=== PATIENT | female | born 1975 | race Caucasian/White ===

== ENCOUNTER 2017-10-05 11:49 | Day surgery (SDC) | payer BC ==
--- NOTE | 2017-10-05 07:42 | History and Physical Report ---
DATE: 10/04/2017. CHIEF COMPLAINT AND HISTORY OF CHIEF COMPLAINT: This is a patient with a history of postlumbar laminectomy radiculopathy. She presents today for an implanted spinal catheter infusion trial with hydromorphone to determine if the implantation of a permanent system can be of any value in pain control. PAST MEDICAL HISTORY: Hypertension, cardiac arrhythmia. SOCIAL HISTORY: Social alcohol, caffeine. FAMILY HISTORY: Cardiac disease. PAST SURGICAL HISTORY: Lumbar spinal surgery, knee surgery, spinal cord stimulator implant. 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 MEDICATIONS ON ADMISSION: To be provided. ALLERGIES: Antibiotics, erythromycin, morphine, opioid. REVIEW OF SYSTEMS: The patient seems appropriate and in no acute distress. The remainder of the systems review shows glasses, headaches, blood pressure problems, degenerative arthritis, depression. PHYSICAL EXAMINATION: General: Height and weight are unknown. Vital Signs: Not available. HEENT: Within normal limits. Lungs: Clear. Heart: Regular rate and rhythm. Abdomen: Nontender. Musculoskeletal: Examination of the musculoskeletal system shows diffuse tenderness throughout the lumbar spine with an adjacent laminectomy scar. Range of motion does produce pain throughout the low back and extending into both legs, somewhat more left than right. Motor and sensory field function shows no significant sensory or motor deficits. Ambulation: No assistive device utilized. Neurologic: Cranial nerves are intact. IMPRESSION: 1. 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 2. LUMBAR RADICULOPATHY, ICD-10 CODE M54.16 AND M54.17. 3. IMPLANTED SPINAL CATHETER INFUSION TRIAL WITH HYDROMORPHONE. PLAN: The patient is here for an implanted spinal catheter infusion trial for evaluation to determine if the implantation of a permanent system will be of any value in pain control. The patient understands the procedure will involve implanting the spinal catheter and the inherent risks of placing a spinal catheter. These include spinal cord injury, paralysis, nerve root injury, and spinal headache. The implanted catheter will be externalized and interfaced to an external pump for the infusion. An epidural blood patch will be performed as a secondary measure to help prevent a spinal headache. The potential risks, side effects, and complications have all been carefully reviewed and discussed. We will evaluate this patient for an overnight stay and will discharge her in the morning. The patient has met with and discussed the risks, side effects, and complications with a [employer] student services representative. Information was provided by way of CD Rom which was given to the patient to evaluate the risks, side effects , and complications. All of her questions have been answered, and everything has been reviewed. JOB NUMBER: [id number] cc: Lauri Trevizo D.O. MTDD
[~2017-10-05 11:49] MED LIST: ACETAMINOPHEN 1,000 MG/100 ML BTL IV ONE; CEFAZOLIN 2 Gram 2 GM/50 ML BAG IVPB ONE; FAMOTIDINE 20MG TABLET PO ONE; HYDROMORPHONE PF 2MG/ML AMP 0.008 MG in 0.9 % SODIUM CHLORIDE 10ML VIA 0.996 ML IV ONE; HYDROMORPHONE PF 2MG/ML AMP 4 MG in 0.9 % SODIUM CHLORIDE 500ML 498 ML IV ONE; MECLIZINE 25 MG TABLET PO ONE; METOCLOPRAMIDE 10 MG TABLET PO ONE
[2017-10-05] MEDS ORDERED: HYDROMORPHONE HCL 2 MG/ML VIAL IV ONE (11:50)
[2017-10-05] MEDS ORDERED: CEFAZOLIN 1G VIAL IM ONE (11:50)
[2017-10-05] MEDS ORDERED: ONDANSETRON HCL IV 4 MG/2 ML VIAL IVP ONE (11:50)
[2017-10-05] MEDS ORDERED: LIDOCAINE 2% MDV (20MG/ML) 20ML VIAL IV ONE (11:50)
[2017-10-05] MEDS ORDERED: PROPOFOL 10 MG/ML VIAL IV ONE (11:50)
[2017-10-05] MEDS ORDERED: LIDOCAINE 1% W/EPI 1:200,000 MPF 30ML SQ ONE (11:50)
[2017-10-05] MEDS ORDERED: BUPIVACAINE 0.5% W/EPI MPF 30 ML VIAL IVP ONE (11:50)
[2017-10-05] MEDS ORDERED: FENTANYL PF 100MCG/2ML VIAL IV ONE (11:50)
[2017-10-05] MEDS ORDERED: *PACU ONLY* KETAMINE HCL 10 MG/ML (20ML) VIAL IV ONE (11:50)
[2017-10-05] MEDS ORDERED: MIDAZOLAM HCL 2MG/2ML VIAL IV ONE (11:50)
[2017-10-05] MEDS ORDERED: RELPAX 40 MG PO PRN (15:52)
[2017-10-05] MEDS ORDERED: PATIENT OWN MED: OMEPRAZOLE 20 MG PO PRN (15:52)
[2017-10-05] MEDS ORDERED: ACETAMINOPHEN 325 MG TAB PO PRN ×2 (15:55)
[2017-10-05] MEDS ORDERED: METOCLOPRAMIDE 10 MG TABLET PO PRN (15:55)
[2017-10-05] MEDS ORDERED: DIPHENHYDRAMINE HCL 25 MG CAPSULE PO PRN (15:55)
[2017-10-05] MEDS ORDERED: AL HYDROX/MAG HYDROX 30ML UD PO PRN (15:55)
[2017-10-05] MEDS ORDERED: HYDROCODONE/APAP 7.5/325MG TABLET PO PRN ×2 (15:55)
[2017-10-05] MEDS ORDERED: SENNOSIDES/DOCUSATE SODIUM UD CAPSULE PO PRN ×2 (15:55)
[2017-10-05] MEDS ORDERED: TEMAZEPAM 15 MG CAPSULE PO PRN ×2 (15:55)
[2017-10-05] MEDS ORDERED: METOCLOPRAMIDE HCL 10 MG/2 ML VIAL IVP PRN (15:55)
[2017-10-05] MEDS ORDERED: OXYCODONE/APAP 10MG-325MG TABLET PO PRN (15:55)
[2017-10-05] MEDS ORDERED: HYDROMORPHONE HCL 2 MG/ML VIAL IM PRN ×2 (15:55)
[2017-10-05] MEDS ORDERED: NALOXONE 0.4 MG/1 ML VIAL IVP PRN (15:55)
[2017-10-05] MEDS ORDERED: DIPHENHYDRAMINE HCL IV 50 MG/ML VIAL IVP PRN ×2 (15:55)
[2017-10-05] MEDS: DIPHENHYDRAMINE HCL 25 MG CAPSULE PO PRN (18:24)
[2017-10-05] MEDS: OXYCODONE/APAP 10MG-325MG TABLET PO PRN ×2 (18:24→22:20)
[2017-10-05] MEDS: RINGERS SOLUTION,LACTATED 1,000 ML IV SCH (18:25)
--- NOTE | 2017-10-05 19:17 | Operative Note - Ferro ---
DATE OF SURGERY: 10/05/17 PREOPERATIVE DIAGNOSIS: 1. POST LUMBAR LAMINECTOMY SYNDROME, ICD-10 CODE = M96.1. 2. LUMBAR RADICULOPATHY, ICD-10 CODE = M54.16 AND M54.17. SURGERY: 1. FLUOROSCOPIC-GUIDED ACCESS SPINAL SPACE AT L3-4. PLACEMENT OF THIN-WALLED SPINAL CATHETER T11-12. 2. DIAGNOSTIC MYELOGRAPHY WITH RADIOLOGIC SUPERVISION AND INTERPRETATION. 3. SPINAL OPIOID BOLUS HYDROMORPHONE 0.002 MG SPINAL SPACE. 4. INCISION, SUBCUTANEOUS DISSECTION, AND ANCHORING OF SPINAL CATHETER TO SUPRASPINOUS FASCIA USING ANCHORING DEVICE AND NONABSORBABLE SUTURE. 5. INCISION, SUBCUTANEOUS DISSECTION, AND CREATION OF SUBCUTANEOUS POUCH AT RIGHT POSTERIOR GLUTEAL MARGIN, A SITE PICKED BY PATIENT FOR EVENTUAL PUMP. 6. TUNNELING OF SPINAL CATHETER INTO POSTERIOR GLUTEAL POUCH, INTERFACE SPINAL CATHETER WITH SECOND CATHETER COMPONENT TUNNELED 6 CM SUPERIOR EXITING THE SKIN. INTERFACE EXTERNAL CATHETER WITH EXTERNAL INFUSION DEVICE SET TO DELIVER HYDROMORPHONE AT 0.08 MG A DAY. 7. CLOSURE OF MIDLINE INCISION WITH VICRYL FOR FASCIAL AND RUNNING SUBCUTICULAR VICRYL FOR SKIN, CLOSURE OF GLUTEAL POUCH WITH RUNNING NYLON, PLACEMENT OF DERMABOND AT MIDLINE SPINAL CATHETER INCISION. DRESSINGS PLACED SECURING CATHETER AND ALL CONNECTIONS UNDER STERILE DRESSING. 8. EPIDURAL BLOOD PATCH AT L4-5, 20 ML AUTOLOGOUS BLOOD DRAWN, STERILE TECHNIQUE, LEFT ANTECUBITAL. SURGEON: TIM BREWSTER D.O. ANESTHESIA: LOCAL SEDATION. ANESTHESIA PROVIDER: JIMMY FRANCOIS CRNA INDICATIONS: This patient presents with a history of intractable post lumbar radiculopathy. Due to the failure of therapy, she was referred to this facility for a spinal opioid infusion pump. She is here for an implanted catheter infusion trial with Hydromorphone to determine if the implantation of a permanent system can be of any value in pain control. SURGERY: Intravenous line, vital sign monitoring, IV sedation, prepped and draped in sterile technique, patient positioned prone. Sterile prep, sterile technique and imaging for guidance, local for infiltration. The spinal interspace at 3-4 marked, infiltrated, then a #20 gauge spinal needle paramedian approach beveled with the long axis inserted into the spinal space using AP and lateral images, advancing into the spinal space on lateral image with CSF flow. A thin-walled spinal catheter was advanced, positioned interspace T11-12. The catheter was clamped to stop CSF leak. The skin above and below the needle infiltrated, incision made, and subcutaneous dissection was conducted to the supraspinous fascia. The needle was removed and the catheter anchored to the supraspinous fascia with anchoring and nonabsorbable suture. There was still CSF from the catheter noted. Diagnostic myelography was then performed through the catheter with the resultant contrast flow characteristics were smoothly in the space. Appropriate flow characteristics noted, no obstructions or kinks. With appropriate flow and identification of the catheter, a bolus of Hydromorphone 0.002 mg given through the catheter into the spinal space. The catheter was then clamped to stop CSF leak. At the right posterior gluteal margin, a site ultimately for the pump picked by the patient, skin infiltrated, incision made, and subcutaneous dissection was used to form a subcutaneous pouch of suitable size and depth. A tunneling tool was then used to carry the spinal catheter into the posterior pouch. The spinal catheter was interfaced with a second catheter component by way of a connector. This second catheter component was tunneled 6 cm above this pouch and exited the skin. The external catheter was then interfaced with an external pump, which was set to deliver Hydromorphone at 0.08 mg a day. The midline incision was closed with Vicryl for fascia and a running subcuticular Vicryl for skin. The posterior pouch was closed with a running nylon. At L4-5, which was one level over the dural puncture, skin infiltrated, an #18 gauge Tuohy needle with loss-of- resistance into the epidural space. 20 mL of autologous blood drawn sterile technique left antecubital and an epidural blood patch was performed at this level with this blood. Needle removed. Dressing was placed securing the incisions and catheter as well as all components under the sterile dressing. With the infusion device running, she was turned onto a transport bed, flat, pillow under head and knees, and transported to the Recovery Room stable. There were no side-effects from the procedure or the sedation. She had full functionality of upper and lower extremities. She had no significant or appreciable pain complaints. She appeared to be doing well. She did have a migraine headache before the procedure. She was advised and cautioned as to the occurrence of the spinal headache exacerbation of her migraine. She will be kept overnight for observation and discharged in the morning. DISCHARGE INSTRUCTIONS IN THE MORNIN. The sites to remain clean and dry. No showering or bathing in any way that would disrupt dressings. 2. Standard medications resumed, including the antibiotic Levaquin 500 mg once a day for 14 days. 3. Spinal opioid side-effects of respiratory depression, nausea, vomiting, constipation, urinary retention, lightheadedness or rash have all been discussed and reviewed. The patient will be seen in the office within the next two days to evaluate the dressings to ensure integrity and do the first of three possible increases, if necessary. A total of three increases will be scheduled. As explained to the patient, it would be more than likely not until the second increase that significant or appreciable pain control will be achieved. Potential risks and side-effects and complications have been reviewed and discussed. She will be monitored and discharged in the morning. cc: Dr. Roderick Barrera JOB NUMBER: [id number] MTDD
[2017-10-05] MEDS: CEFAZOLIN 2 Gram 2 GM/50 ML BAG IVPB SCH (21:33)
[2017-10-05] MEDS ORDERED: PATIENT OWN MED: CYCLOBENZAPRINE 10 MG PO SCH (22:00)
[2017-10-05] MEDS ORDERED: MELATONIN 5 MG TABLET PO SCH (22:00)
[2017-10-05] MEDS ORDERED: PATIENT OWN MED: DULOXETINE 60 MG PO SCH (22:00)
[2017-10-06] MEDS: RINGERS SOLUTION,LACTATED 1,000 ML IV SCH (01:36)
[2017-10-06] MEDS: OXYCODONE/APAP 10MG-325MG TABLET PO PRN ×2 (04:28→10:50)
[2017-10-06] MEDS: DIPHENHYDRAMINE HCL 25 MG CAPSULE PO PRN ×2 (04:28→10:49)
[2017-10-06] MEDS: CEFAZOLIN 2 Gram 2 GM/50 ML BAG IVPB SCH (04:47)
[2017-10-06] MEDS ORDERED: PREGABALIN 75 MG PO SCH (10:00)
[2017-10-06] MEDS ORDERED: POLYETHYLENE GLY 17 GM PACKET PO SCH (10:00)
[2017-10-06] MEDS ORDERED: LISINOPRIL 2.5 MG PO SCH (10:00)
--- NOTE | 2017-10-06 16:37 | RADIOLOGY REPORT ---
EXAM: SPINE, 1 VIEW HISTORY: POST PAIN PUMP TRIAL. TECHNIQUE: Single AP portable view of the abdomen. COMPARISON: None. FINDINGS: Patient is probably postop laminectomy at L5. Battery pack overlying the left side of the pelvis with the associated catheter extending over the spine and extending up above the superior aspect of the image, which ends at the T8 level. There may be some faint contrast in the inferior aspect of the thecal sac overlying the upper sacrum. A few metallic densities just to the left of this are of uncertain significance and correlation with the procedure itself suggested. There is also a linear wire or needle-like density about 21 mm in length overlying the right iliac wing. This could be external to the patient or even an artifact but is nonspecific and clinical correlation suggested. IMPRESSION: 1. POSTOP CHANGES AT L5. 2. SOME METALLIC DENSITIES OVERLYING THE UPPER SACRUM ON THE LEFT OF UNCERTAIN SIGNIFICANCE DESCRIBED ABOVE. 3. BATTERY PACK OVERLYING THE LEFT SIDE OF THE PELVIS WITH ASSOCIATED CATHETER/ WIRES EXTENDING UP TO OVERLIE THE LOWER THORACIC SPINE EXTENDING UP ABOVE THE UPPER EXTENT OF THE FILM. 4. LINEAR NEEDLE-LIKE DENSITY OVERLYING THE RIGHT ILIAC WING OF UNCERTAIN SIGNIFICANCE DESCRIBED ABOVE. JOB NUMBER: [id number] [facility]
== END 2017-10-06 11:00 | disposition home or self-care (01) ==
LOC: SUR 11:49 → MEDSURG 16:03 → SUR 10-06 11:00
PROVIDERS: ATTEND Pain Medicine Interventional Pain Medicine
DX: M96.1 Postlaminectomy syndrome, not elsewhere classified (principal); M54.16 Radiculopathy, lumbar region; M54.17 Radiculopathy, lumbosacral region; I10 Essential (primary) hypertension; K21.9 Gastro-esophageal reflux disease without esophagitis; G89.29 Other chronic pain
CPT/HCPCS: 62350; 01936; 85002; 72020; Q9967; J2405; J3010; J1170 ×2; J0690 ×2; J3490; J1200; J7040; J7120

== ENCOUNTER 2017-10-19 13:14 | Day surgery (SDC) | payer BC ==
--- NOTE | 2017-10-19 06:58 | History and Physical Report ---
DATE: 10/19/2017. CHIEF COMPLAINT AND HISTORY OF CHIEF COMPLAINT: This patient presents with a history of an intractable postlumbar laminectomy radiculopathy and an implanted spinal catheter infusion trial with hydromorphone. The patient has achieved up to greater than 75 percent pain control. Unfortunately, over the last 24 to 72 hours she has developed peripheral edema. The infusion device was stopped and restarted with a reduction in the peripheral edema. She is here for possible implant of a permanent device or extension of the spinal infusion trial but with fentanyl and bupivacaine. PAST MEDICAL HISTORY: Hypertension, cardiac arrhythmia. PAST SURGICAL HISTORY: Lumbar spinal surgery, knee surgery, spinal cord stimulator, and pump catheter placement. 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 MEDICATIONS ON ADMISSION: To be provided. ALLERGIES: Multiple antibiotics, morphine, and different opioids. SOCIAL HISTORY: Social alcohol, caffeine. FAMILY HISTORY: Cardiac disease. REVIEW OF SYSTEMS: The patient is appropriate and in no acute distress. The remainder of the systems review shows glasses, headaches, blood pressure problems, degenerative arthritis, depression. PHYSICAL EXAMINATION: General: Height and weight are not known. Vital Signs: Not available. Musculoskeletal: Current examination shows the dressings for the implanted catheter trial to be intact. The external infusion device is infusing at 0.16 mg per day. Her chronic pain pattern is a postlaminectomy radiculopathy with bilateral lower extremity involvement. Her sensory field and motor functionality appear to be intact with no significant sensory or motor deficits. Neurologic: Cranial nerves are intact. Ambulation: No assistive device utilized. IMPRESSION: 1. 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 2. LUMBAR RADICULOPATHY, ICD-10 CODE M54.16 AND M54.17. 3. IMPLANTED SPINAL CATHETER INFUSION TRIAL WITH HYDROMORPHONE. PLAN: We have one or two options today. This is all going to depend upon the patient's choice. She has achieved significant, greater than 75 percent, pain control through the implanted catheter with hydromorphone, but she did develop some peripheral edema. Initially we felt that perhaps this was due to too rapid an increase, but the fact remains that there may be a sensitivity to Dilaudid. We could implant the device based upon the patient's preference. We also may remove all of the external dressings, remove the external catheter component, interface to the permanent catheter component, and then replace her infusion from Dilaudid with a fentanyl/bupivacaine mixture and extend the trial for one week. Should an implant be performed, the procedure will be considered outpatient. The starting infusion rate will be consistent with the end rate with the current infusion. The potential risks, side effects, complications, and all of the above options have been explained and reviewed. JOB NUMBER: [id number] cc: Lauri Trevizo D.O. MTDD
[~2017-10-19 13:14] MED LIST changes: +HYDROMORPHONE HCL 0.04 GM in 0.9 % SODIUM CHLORIDE 10ML VIA 20 ML IV ONE; +HYDROMORPHONE PF 2MG/ML AMP 0.004 MG in 0.9 % SODIUM CHLORIDE 10ML VIA 0.998 ML IV ONE; -HYDROMORPHONE PF 2MG/ML AMP 0.008 MG in 0.9 % SODIUM CHLORIDE 10ML VIA 0.996 ML IV ONE; -HYDROMORPHONE PF 2MG/ML AMP 4 MG in 0.9 % SODIUM CHLORIDE 500ML 498 ML IV ONE
[2017-10-19] MEDS ORDERED: BUPIVACAINE 0.5% W/EPI MPF 30 ML VIAL IVP ONE (13:15)
[2017-10-19] MEDS ORDERED: MIDAZOLAM HCL 2MG/2ML VIAL IV ONE (13:15)
[2017-10-19] MEDS ORDERED: KETOROLAC 30 MG/ML VIAL IVP ONE (13:15)
[2017-10-19] MEDS ORDERED: LIDOCAINE 2% MDV (20MG/ML) 20ML VIAL IV ONE (13:15)
[2017-10-19] MEDS ORDERED: *PACU ONLY* KETAMINE HCL 10 MG/ML (20ML) VIAL IV ONE (13:15)
[2017-10-19] MEDS ORDERED: PROPOFOL 10 MG/ML VIAL IV ONE (13:15)
[2017-10-19] MEDS ORDERED: CEFAZOLIN 1G VIAL IM ONE (13:15)
[2017-10-19] MEDS ORDERED: LIDOCAINE 1% W/EPI 1:200,000 MPF 30ML SQ ONE (13:15)
[2017-10-19] MEDS ORDERED: FENTANYL PF 100MCG/2ML VIAL IV ONE ×3 (13:15→14:00)
[2017-10-19] MEDS ORDERED: HYDROMORPHONE HCL 2 MG/ML VIAL IV ONE (13:15)
[2017-10-19] MEDS ORDERED: [UNRECOGNIZED DRUG - OTHER] IJ ONE (14:00)
[2017-10-19] MEDS ORDERED: BUPIVACAINE IJ ONE (14:00)
[2017-10-19] MEDS ORDERED: FENTANYL CITRATE IJ ONE (14:00)
--- NOTE | 2017-10-20 16:52 | Operative Note - Ferro ---
DATE OF SURGERY: 10/19/17 PREOPERATIVE DIAGNOSES: 1. POST LUMBAR LAMINECTOMY SYNDROME, ICD-10 CODE = M96.1. 2. LUMBAR RADICULOPATHY, ICD-10 CODE = M54.16 AND M54.17. 3. IMPLANTED SPINAL CATHETER INFUSION TRIAL HYDROMORPHONE. OPERATION: 1. INCISION, SUBCUTANEOUS DISSECTION, AND REMOVAL OF EXTERNAL CATHETER. 2. INCISION, SUBCUTANEOUS DISSECTION AT RIGHT POSTERIOR GLUTEAL MARGIN FORMATION OF SUBCUTANEOUS POUCH APPROPRIATE SIZE FOR A PROGRAMMABLE MEDTRONIC PUMP 20 ML. 3. REVISION INDWELLING SPINAL CATHETER INTERFACE WITH CONNECTOR AND SECONDARY CATHETER COMPONENT FOR PUMP. 4. PLACEMENT OF PUMP 20 ML FILLED 1 MG PER ML INTERFACE TO REVISE CATHETER. 5. PLACEMENT OF PUMP AND CATHETER INTO POSTERIOR POUCH SECURING TO POSTERIOR FASCIA WITH NONABSORBABLE SUTURE THREE POINTS PUMP EYELETS. 6. CURVED 24-GAUGE BALTAZAR NEEDLE INTO ACCESS PORT PROGRAMMABLE PUMP ASPIRATION CLEARING 1 ML OF CATHETER CONTENT CLEARING CATHETER OF OPIOID AND A CSF MIXTURE. 7. DIAGNOSTIC MYELOGRAPHY WITH RADIOLOGIC SUPERVISION AND INTERPRETATION. 8. CLOSURE OF INCISION, VICRYL FOR FASCIA, RUNNING SUBCUTICULAR VICRYL FOR SKIN , DERMABOND CLOSURE. 9. COMPLEX PROGRAMMING PROGRAMMABLE PUMP CONTINUOUS INFUSION HYDROMORPHONE AT 0.2 MG A DAY. SURGEON: TIM BREWSTER D.O. ANESTHESIA: LOCAL SEDATION. ANESTHESIA PROVIDER: JIMMY FRANCOIS CRNA INDICATION: This patient presents with a history of intractable post laminectomy radiculopathy. Due to the failure of therapy, an implanted spinal catheter infusion trial Hydromorphone was initiated. She developed 75 to 85% pain control but towards the end of the trial period developed peripheral edema. The pump was slightly reduced, the antibiotic was changed, and the peripheral edema completely dissipated; certainly raising question as to whether or not this was an antibiotic or Levaquin response. She is here by her request for permanent implant. There is no peripheral edema and her pain control is 75%. PROCEDURE: Intravenous line, vital sign monitoring, IV sedation, prepped and draped with sterile technique. The previous incision at the right posterior gluteal margin infiltrated with local, incision made, and subcutaneous dissection was conducted to form a pouch of suitable size and depth for the pump identified as a Medtronic 20 mL Programmable. The externalized spinal catheter and its connection to the indwelling catheter was identified, clamped, and the external catheter was cut and removed by pulling away from the incision. The indwelling permanent catheter was then revised, resected, and interfaced with a second catheter component by way of a connector. This revised catheter was then interfaced to a pump placed onto the field, 20 mL Programmable filled with Hydromorphone 1 mg per mL. The revised catheter was interfaced to the pump. The pump was then placed into the pouch after antibiotic irrigation and Bovie for hemostasis. The pump was fixed to the posterior fascia by way of using nonabsorbable suture three points pump eyelets. A 24-gauge Baltazar needle was inserted into the access port of the pump and 1 mL of catheter contents was aspirated clearing the catheter of opioid and CSF mixture. Diagnostic myelography was then performed; the resulting flow characteristics moving through the pump identified. No obstructions. The pump catheter connection was imaged and identified. There were no kinks, bends, or leaks. Tip of the catheter at T12/L1 was identified with appropriate flow characteristics noted. Functionality of the system was noted. The incision was then closed Vicryl for fascia and a running subcuticular Vicryl for skin. Dermabond closure. The pump was programmed to deliver by continuous infusion Hydromorphone at 0.2 mg per day. She was transported to the Recovery Room, stable. No side-effects from the procedure or the sedation. When fully awake and alert, by her request, she was discharged. DISCHARGE INSTRUCTIONS: 1. Sites will remain clean and dry although the Dermabond will allow showering. She should not sit in water or bathe. 2. Standard medications resume. She will continue her Keflex 500 mg four times a day for another 7 days. 3. Spinal opioid side-effects; respiratory depression, nausea, vomiting, constipation, urinary retention, lightheadedness or rash have all been discussed and reviewed. All other instructions provided, numbers to contact with problems given. At that point, she was prepared for discharge. The office will contact the patient in the next 24-48 hours to set up an appointment in 7- 10 days to evaluate the sites. Until then, her activities should stay low. Limit bend, lift, push, pull. cc: Dr. Roderick Barrera JOB NUMBER: [id number] [facility]
== END 2017-10-19 16:30 | disposition home or self-care (01) ==
LOC: SUR 13:14
PROVIDERS: ATTEND Pain Medicine Interventional Pain Medicine
DX: M96.1 Postlaminectomy syndrome, not elsewhere classified (principal); M54.16 Radiculopathy, lumbar region; M54.17 Radiculopathy, lumbosacral region; I10 Essential (primary) hypertension; K21.9 Gastro-esophageal reflux disease without esophagitis
CPT/HCPCS: 62350; 62362; 01936; 62367; Q9967; J1885; J3010; J1170 ×2; J0690; C1755; J7040

== ENCOUNTER 2018-05-24 07:58 | Day surgery (SDC) | payer BC ==
--- NOTE | 2018-05-24 06:39 | History and Physical - Ferro ---
CHIEF COMPLAINT/HISTORY OF CHIEF COMPLAINT: This patient presents with a spinal cord stimulator surgically implanted with a battery which is depleted. She is here for a stimulator battery replacement. PAST MEDICAL HISTORY: Hypertension and degenerative arthritis. PAST SURGICAL HISTORY: Lumbar spinal surgery, knee surgery, spinal cord stimulator implant, and pump implant. 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 MEDICATIONS ON ADMISSION: List to be provided. ALLERGIES: MORPHINE. FAMILY/PSYCHOSOCIAL HISTORY: Social history - Caffeine. Family history - Coronary artery disease. SYSTEMS REVIEW: The patient is appropriate in no acute distress. The remainder of the systems review is positive for a cardiac murmur. PHYSICAL EXAMINATION: Height is 5'4", weight is 200 pounds. No vital signs. HEENT: Within normal limits. LUNGS: Clear. HEART: [place] and irregular. ABDOMEN: Nontender. MUSCULOSKELETAL: Examination of the musculoskeletal system shows the spinal cord stimulator generator in the left posterior gluteal margin. The incisional site is intact. No breakdown. Primary pain pattern is post laminectomy and radiculopathy. No motor or sensory abnormalities. Primary pain left lower extremity. NEUROLOGIC: Cranial nerves are intact. IMPRESSION: 1. POST LUMBAR LAMINECTOMY SYNDROME, ICD-10 CODE M96.1 WITH RADICULOPATHY ICD- 10 CODE M54.16 AND M54.17. 2. SPINAL CORD STIMULATOR AND INTERNAL GENERATOR, BATTERY DEPLETION. PLAN: The patient is here on an outpatient basis for the generator replacement. The potential risks, side effects, and complications have all been reviewed and discussed. JOB NUMBER: [id number] MTDD
[~2018-05-24 07:58] MED LIST changes: -HYDROMORPHONE HCL 0.04 GM in 0.9 % SODIUM CHLORIDE 10ML VIA 20 ML IV ONE; -HYDROMORPHONE PF 2MG/ML AMP 0.004 MG in 0.9 % SODIUM CHLORIDE 10ML VIA 0.998 ML IV ONE
[2018-05-24] MEDS ORDERED: BUPIVACAINE 0.5% W/EPI MPF 30 ML VIAL IVP ONE (07:59)
[2018-05-24] MEDS ORDERED: PROPOFOL 10 MG/ML VIAL IV ONE (07:59)
[2018-05-24] MEDS ORDERED: LIDOCAINE 2% MDV (20MG/ML) 20ML VIAL IV ONE (07:59)
[2018-05-24] MEDS ORDERED: LIDOCAINE 1% W/EPI 1:200,000 MPF 30ML SQ ONE (07:59)
[2018-05-24] MEDS ORDERED: KETAMINE HCL 100MG/1ML VIAL INJ ONE (07:59)
[2018-05-24] MEDS ORDERED: KETOROLAC 30 MG/ML VIAL IVP ONE (07:59)
[2018-05-24] MEDS ORDERED: MIDAZOLAM HCL 2MG/2ML VIAL IV ONE (07:59)
[2018-05-24] MEDS ORDERED: FENTANYL PF 100MCG/2ML VIAL IV ONE (07:59)
[2018-05-24] MEDS ORDERED: CEFAZOLIN 1G VIAL IM ONE (07:59)
[2018-05-24 08:52] LABS: BASO % 0.3 % (0-6); EOS % 1.2 % (0-6); GRAN % 67.6 % (47-80); HEMATOCRIT 39.9 % (35.0-47.0); HEMOGLOBIN 12.9 gm/dl (11.6-16.0); MEAN CELL VOLUME 91.9 fl (81-97); MEAN CORPUSCULAR HEMOGLOBIN 29.7 pg (27-33); MEAN CORPUSCULAR HGB CONC 32.3 g/dl (32-36); MEAN PLATELET VOLUME 10.1 fl (7.4-10.4); MONO % 4.9 % (0-9); PLATELET COUNT 322 K/uL (130-400); RED BLOOD COUNT 4.34 M/uL (3.80-5.40); RED CELL DISTRIBUTION WIDTH 12.8 % (11.5-14.5); WHITE BLOOD COUNT W/O DIFF 5.9 K/uL (4.2-12.2)
[2018-05-24 09:04] LABS: BLOOD UREA NITROGEN 18 mg/dL (6-20); CREATININE 0.7 mg/dL (0.5-0.9); EST GLOMERULAR FILTRATION RATE > 60 mL/min; GLUCOSE,RANDOM 102 mg/dL (74-109)
[2018-05-24 09:05] LABS: INR 0.9; PARTIAL THROMBOPLASTIN TIME 26.3 SECONDS (24.5-39.1); PROTHROMBIN TIME (PATIENT) 9.5 SECONDS (9.5-12.1)
--- NOTE | 2018-05-25 20:56 | Operative Note ---
DATE OF SURGERY: 05/24/2018 PREOPERATIVE DIAGNOSES: 1. POST LUMBAR LAMINECTOMY SYNDROME ICD-10 CODE = M96.1 WITH INTRACTABLE LUMBAR RADICULOPATHY ICD-10 CODE = M54.16 AND M54.17. 2. SPINAL CORD STIMULATOR INTERNAL GENERATOR BATTERY DEPLETION. SURGERY: FLUOROSCOPIC-GUIDED INCISION, SUBCUTANEOUS DISSECTION, AND REMOVAL AND REPLACEMENT OF INTERNAL PULSE GENERATOR FOR SPINAL CORD STIMULATOR. SURGEON: TIM BREWSTER D.O. ANESTHESIA: LOCAL SEDATION. ANESTHESIA PROVIDER: ROHITH. INDICATION: This patient presents with a history of an intractable lumbar radiculopathy with a post laminectomy source. Due to the failure of therapy and an indwelling spinal cord stimulator with internal generator showing depletion, she is here for replacement of generator. SURGERY: Intravenous line, vital sign monitoring, IV sedation, prepped and draped with sterile technique. The generator at the left posterior gluteal margin marked, infiltrated, incision made and subcutaneous dissection was conducted to the generator. The pouch was opened and the generator exteriorized and from the indwelling leads. A new generator, a Liqueo WaveWriter placed onto the field and then interfaced to the indwelling leads. Antibiotic irrigation and Bovie for hemostasis. The generator was placed into the pouch after being secured to the indwelling leads. An Ethibond suture was used to secure the generator into the pouch and then the existing pouch was closed using a STRATAFIX suture, #2-0 for fascia, #3-0 for skin. A Dermabond closure then used to approximate the edges of the wound. She was transported to the Recovery Room stable with no side-effects from the procedure or the sedation. When fully awake and alert, complex programming was then performed over 20 minutes reestablishing stimulation and pain control to all the appropriate areas. She was instructed on the use of the system, provided with information on error messaging, and then prepared for discharge. DISCHARGE INSTRUCTIONS: 1. The site is to remain clean and dry. She can shower with the Dermabond but not sit in water. 2. Standard medications resumed including the antibiotic Levaquin 500 mg once a day for 14 days. 3. The office will contact the patient within the next 1 to 2 days to set up an appointment in 7 to 10 days to be seen in the office to check the sites. Until then, limit bend, lift, push, pull and keep activities controlled. cc: Dr.Amber Barrera JOB NUMBER: [id number] MTDD
== END 2018-05-24 12:00 | disposition home or self-care (01) ==
LOC: SUR 07:58
PROVIDERS: ATTEND Pain Medicine Interventional Pain Medicine
DX: M96.1 Postlaminectomy syndrome, not elsewhere classified (principal); M54.16 Radiculopathy, lumbar region; M54.17 Radiculopathy, lumbosacral region; I10 Essential (primary) hypertension
CPT/HCPCS: 63685; 00300; 95972; 85025; 85730; 85610; 80048; J1885; J3010; J0690; J3490; C1820